=== PATIENT | male | born 1990 | race Caucasian/White ===

== ENCOUNTER → 2019-12-10 13:45 | Outpatient (CLI) | payer OTHER, SELFPAY ==
[2019-12-16 20:07] LABS: QNTFERON TB Mitogen Value > 10.00 IU/mL (.); QNTFERON TB Nil Value 0.07 IU/mL (.); QNTFERON TB1+ Ag Value 0.09 IU/mL (.); QNTFERON TB2+ Ag Value 0.18 IU/mL (.)
[2019-12-16 21:14] LABS: QNTIFERON TB Positive Criteria Negative (Negative)
== END ==
PROVIDERS: PCP Family Medicine; Referring Provider Physician Assistant Medical; Visit Provider Physician Assistant Medical
DX: L40.0 Psoriasis vulgaris (principal); Z79.899 Other long term (current) drug therapy
CPT/HCPCS: 36415; 86480

== ENCOUNTER → 2021-03-21 14:54 | Outpatient (CLI) | payer OTHER, SELFPAY ==
[2021-03-27 05:06] LABS: QNTFERON TB Mitogen Value > 10.00 IU/mL (.); QNTFERON TB Nil Value 0.88 IU/mL (.); QNTFERON TB1+ Ag Value 0.71 IU/mL (.); QNTFERON TB2+ Ag Value 0.68 IU/mL (.)
[2021-03-27 09:06] LABS: QNTIFERON TB Positive Criteria Negative (Negative)
== END ==
PROVIDERS: PCP Family Medicine; Referring Provider Physician Assistant Medical; Visit Provider Physician Assistant Medical
DX: L40.0 Psoriasis vulgaris (principal); Z79.899 Other long term (current) drug therapy
CPT/HCPCS: 36415; 86480

== ENCOUNTER 2021-04-16 22:28 | Emergency (ER) | payer OTHER, SELFPAY ==
[2021-04-16 22:29] VITALS: BP 161/109; PULSE 114; RESP 16; TEMP 36.6; O2SAT 99; BMI 26.2
--- NOTE | 2021-04-16 22:56 | EDS_ITS ---
HPI HPI - GI History of Present Illness Chief Complaint: Constipation Informant: patient Narrative Narrative: Patient is a 31-year-old male presenting with constipation. Patient states he has not had a bowel movement in the past 7 days. He states he is having abdominal discomfort, cramping pain and nausea. He has been passing gas. He notes that 5 days ago after eating dinner he had chills, body aches and nausea as well as stomach cramping. He woke up covered in sweat and since then has not had a bowel movement. He is not sure his last vomit was before that. He notes he normally has a bowel movement every time he eats. Patient has tried multiple visa-ovh-gfjnqup medications including daily MiraLAX for the past 4 days, Colace for the past 2 days and a Fleet enema with no results. He had a teledoc appointment [facility] who recommend he come to the emergency room. He does have a history of appendectomy and cholecystectomy. Denies any urinary symptoms. Notes he has been drinking less and therefore urinating less. No re ported vomiting. Patient states that he is on Truvada for HIV prevention. [facility] Medical History (Updated 04/17/21 @ 01:[address] Cierra Grewal DO) ADD (attention deficit disorder) Anxiety Home Medications alprazolam 0.5 mg PO TID 04/16/21 [History Last Taken Unknown] dextroamphetamine-amphetamine 30 mg PO DAILY 04/16/21 [History Last Taken Unknown] emtricitabine-tenofovir (TDF) 1 tab PO DAILY 04/16/21 [History Last Taken Unknown] tizanidine 4 mg PO Q4H PRN PRN 04/16/21 [History Last Taken Unknown] magnesium citrate 150 ml PO DAILY PRN #296 ml 04/17/21 [Rx Last Taken Unknown] ondansetron 4 mg PO Q8H PRN #14 tab 04/17/21 [Rx Last Taken Unknown] Allergy/AdvReac Type Severity Reaction Status Date / Time Penicillins AdvReac Vomiting Verified 04/16/21 22:31 Social History Smoking Status: Current every day smoker tobacco type: cigarettes ROS ROS ED Constitutional Constitutional ED: Denies chills, fever(s) or malaise Eyes Eyes: Denies blurry vision or loss of vision ENT ENT ED: Denies rhinorrhea or sore throat Cardiovascular Cardiovascular: Denies chest pain or dizziness Respiratory/Chest Respiratory/Chest: Denies cough or dyspnea Gastrointestinal Gastrointestinal: Reports abdominal pain, constipation and nausea; Denies vomiting Genitourinary Genitourinary ED: Denies dysuria or hematuria Musculoskeletal Musculoskeletal: Denies arthralgias or myalgias Integumentary Denies rash or wounds Neurologic Neurologic: Denies focal weakness, headache(s) or weakness Psychiatric Psychiatric: Denies anxiety or behavioral changes EXAM Physical Exam Const Vital Signs: 04/16/21 22:29 Temperature 97.8 F Temperature Source Temporal Pulse Rate 114 H Respiratory Rate 16 Blood Pressure 161/109 H Blood Pressure Mean 126 Pulse Ox 99 Oxygen Delivery Method Room Air Positive well nourished and well developed General Appearance ED: well developed HEENT Reports moist mucous membranes normocephalic Eyes PERRL and EOMs intact bilaterally Neck supple Resp normal respiratory effort and clear to auscultation bilaterally Cardio regular rate, regular rhythm and no murmurs GI GI Narrative: No stool on rectal exam Inspection: Negative for abdominal distention Palpation: soft and tender; Negative for guarding, rigid or mass Back/Spine no CVA tenderness Extremity full ROM General Extremety ED: Negative for edema or tenderness General Extremity: Negative for edema Neuro Sensorium / Orientation: alert, oriented to person, oriented to place and oriented to time Motor Exam: strength 5/5 throughout; Negative for general weakness Skin Lesions: no lesions Rashes: no rashes MDM MDM MDM Narrative Medical decision making narrative: Patient is evaluated for abdominal dis comfort, nausea and constipation. He appears nontoxic and in no acute distress. Abdomen is soft and mildly tender. He does have bowel sounds throughout. He does have a prior abdominal surgeries including appendectomy cholecystectomy. CT the abdomen pelvis obtained to rule out small bowel obstruction given his degree of constipation and nausea. Work-up is largely normal. He is not have any signific ant electrolyte abnormalities, signs of infection or acute process on the CT. There is no significant stool burden or signs of fecal impaction. Patient is given a prescription for magnesium citrate as well as Zofran. He will continue taking MiraLAX. He will follow-up with his PCP and will discuss follow-up with GI at that time. Patient is counseled on signs and symptoms requiring return to the emergency room. Patient verbalizes agreement and understand this plan. Patient discharged home in stable and improved condition. Lab Data Attestation: I reviewed the patient's lab results. Labs: Laboratory Results - last 24 hr 04/16/21 04/16/21 23:15 23:15 WBC 7.1 RBC 4.90 Hgb 15.8 Hct 46.5 MCV 94.9 H MCH 32.2 H MCHC 34.0 RDW Std Deviation 40.3 RDW Coeff of Geno 11.7 Plt Count 299 MPV 10.6 Immature Gran % (Auto) 1.100 H Neut % (Auto) 45.0 L Lymph % (Auto) 43.6 H [place] % (Auto) 7.2 Eos % (Auto) 2.0 Baso % (Auto) 1.1 H Absolute Neuts (auto) 3.2 Absolute Lymphs (auto) 3.09 Nucleated RBC % 0 Sodium 142 Potassium 3.6 Chloride 112 H Carbon Dioxide 25.0 Anion Gap 5 BUN 9 Creatinine 0.89 Estim Creat Clear Calc 112.44 Est GFR (MDRD) Af Amer 128 Est GFR (MDRD) Non-Af 106 BUN/Creatinine Ratio 10.1 Glucose 101 Calcium 8.9 Total Bilirubin 0.50 AST 20 ALT 53 Alkaline Phosphatase 91 Total Protein 8.0 Albumin 4.2 Globulin 3.8 Albumin/Globulin Ratio 1.1 Lipase 117 Radiography Diagnostic Testing: Clinical Impression(s) from Imaging Studies Abdomen/Pelvis CT 04/17/21 23:06 IMPRESSION: No acute abnormality of the abdomen and pelvis. Electronically Signed: Glory Figueroa MD at 1:13 EST Tel , Service support , Discharge Plan Triage Chief Complaint: Constipation ED Provider: Cierra Grewal Dx/Rx/DC Orders Clinical Impression: Constipation, Abdominal pain Instructions: ED Constipation (Adult) Prescriptions: New ondansetron 4 mg tablet,disintegrating 4 mg PO Q8H PRN (Reason: nausea and vomiting) Qty: 14 RF: 0 magnesium citrate Solution 150 ml PO DAILY PRN (Reason: constipation) Qty: 296 RF: 0 No Action tizanidine 4 mg tablet 4 mg PO Q4H PRN PRN (Reason: Muscle Spasm) RF: 0 alprazolam 0.5 mg tablet 0.5 mg PO TID RF: 0 dextroamphetamine-amphetamine 30 mg capsule,extended release 24hr 30 mg PO DAILY RF: 0 emtricitabine-tenofovir (TDF) 200-300 mg tablet 1 tab PO DAILY RF: 0 Primary Care Provider: Elsi Flaherty Referrals: Elsi Flaherty DO [Primary Care Provider] - Disposition Disposition: Home, Self Care Discharge Date/Time: 04/17/21 01:47
[2021-04-16] MEDS: 0.9% Normal Saline 1,000 ML 1000 ML IV (23:19)
[2021-04-16] MEDS: Ondansetron 4 MG/2 ML Vial IV (23:19)
[2021-04-16 23:30] LABS: Absolute Lymphocyte Count 3.09 X10^3/uL (0.83-4.51); Absolute Neutrophil Count 3.2 X10^3/uL (2.0-7.7); Basophil# 0.08 X10^3/uL; Basophil% 1.1 % (0-1); Eosinophil# 0.14 X10^3/uL; Hematocrit 46.5 % (40-54); Hemoglobin 15.8 g/dL (13.0-16.5); Lymphocyte # 3.09 X10^3/ul (0.83-4.51); Lymphocyte % 43.6 % (19-41); Mean Corpuscular Hgb 32.2 pg (27.0-32.0); Mean Corpuscular Volume 94.9 fL (80-94); Mean Platelet Vol. 10.6 fl (6.2-12.0); Monocyte# 0.51 X10^3/uL; Monocyte% 7.2 % (0-10); NRBC Flagged by Analyzer 0 % (0-5); Neutrophil # 3.19 X10^3/uL (2.7-7.7); Platelet Count 299 K/mm3 (150-450); RBC Distribution Width CV 11.7 % (11.6-14.6); RBC Distribution Width SD 40.3 fl (35.1-43.9); White Blood Count 7.1 K/mm3 (4.4-11.0)
[2021-04-16 23:46] LABS: ALB/GLOB Ratio 1.1 RATIO (0.9-2.4); AST(SGOT) 20 U/L (15-37); Alanine Aminotransfer ALT/SGPT 53 U/L (16-61); Albumin, Serum 4.2 g/dL (3.2-5.0); Alkaline Phosphatase 91 U/L (45-117); Anion Gap 5 (5-15); BUN 9 mg/dL (7-18); BUN/Creat Ratio 10.1 RATIO (10-20); Calcium,Total 8.9 mg/dL (8.5-10.1); Chloride 112 mmol/L (98-107); Creatinine, Serum 0.89 mg/dL (0.70-1.30); EST Glomerular Filtration Rate 106 mL/min (>60); Est Glom Filt Rate - Afr Amer 128 mL/min (>60); Estimated Creatinine Clearance 112.44 ml/min; Globulin 3.8 g/dL (2.2-4.2); Glucose 101 mg/dL (74-106); Lipase 117 U/L (73-393); Potassium 3.6 mmol/L (3.5-5.1); Sodium Level 142 mmol/L (136-145)
--- NOTE | 2021-04-17 23:06 | CT_ITS ---
STUDY: CT ABDOMEN AND PELVIS WITH CONTRAST REASON FOR EXAM: Male, 31 years old. abdominal pain, constipation RADIATION DOSAGE (If Supplied By Facility): CTDIvol = ( 14.51 ) mGy, DLP = ( 888.15 ) mGycm TECHNIQUE: Transaxial images were obtained from the dome of the diaphragm to the symphysis pubis without oral contrast. IV 100mL Isovue-300 was administered. Sagittal and coronal images were reconstructed. Individualized dose optimization techniques were used for this CT. COMPARISON: None. FINDINGS: The visualized lung bases are unremarkable. The visualized portions of the heart are within normal limits. Normal liver. There are surgical clips in the gallbladder fossa consistent with a prior cholecystectomy. Normal spleen. Normal pancreas. Normal bilateral adrenal glands. Normal right kidney. There is a cyst in the left kidney measures 1 cm. Normal visualized stomach. Normal small intestine. Normal colon. There are surgical clips in the region of the appendix consistent with a prior appendectomy. Normal abdominal aorta. Normal inferior vena cava. Normal retroperitoneum. Normal urinary bladder. Normal abdominal wall. Normal osseous structures. CT/Abdomen/Pelvis W IV Cont ONLY IMPRESSION: No acute abnormality of the abdomen and pelvis. Electronically Signed: Glory Figueroa MD at 1:13 EST Tel , Service support ,
== END 2021-04-17 01:47 | disposition home or self-care (01) ==
PROVIDERS: Emergency Provider Emergency Medicine; PCP Family Medicine
DX: K59.00 Constipation, unspecified (principal); R10.9 Unspecified abdominal pain; R11.0 Nausea; Z90.49 Acquired absence of other specified parts of digestive tract; F41.9 Anxiety disorder, unspecified; F98.8 Other specified behavioral and emotional disorders with onset usually occurring in childhood and adolescence; F17.210 Nicotine dependence, cigarettes, uncomplicated; Z79.899 Other long term (current) drug therapy
CPT/HCPCS: 74177; 80053; 83690; 85025; 96361; 96374; 99283; J7030; Q9967; A4216; J2405

== ENCOUNTER → 2021-11-20 | Outpatient (CLI) | payer OTHER, SELFPAY ==
[2021-11-20 12:43] LABS: Absolute Lymphocyte Count 2.08 X10^3/uL (0.83-4.51); Absolute Neutrophil Count 3.4 X10^3/uL (2.0-7.7); Basophil# 0.05 X10^3/uL; Basophil% 0.8 % (0-1); Eosinophil# 0.09 X10^3/uL; Eosinophils% 1.5 % (0-5); Hemoglobin 15.9 g/dL (13.0-16.5); Lymphocyte # 2.08 X10^3/ul (0.83-4.51); Lymphocyte % 33.9 % (19-41); Mean Corp Hgb Conc 33.1 g/dL (32-36); Mean Corpuscular Hgb 31.4 pg (27.0-32.0); Mean Corpuscular Volume 94.9 fL (80-94); Mean Platelet Vol. 11.3 fl (6.2-12.0); Monocyte# 0.45 X10^3/uL; Monocyte% 7.3 % (0-10); NRBC Flagged by Analyzer 0 % (0-5); Neutrophil # 3.43 X10^3/uL (2.7-7.7); Platelet Count 277 K/mm3 (150-450); RBC Distribution Width CV 11.9 % (11.6-14.6); RBC Distribution Width SD 41.5 fl (35.1-43.9); Red Blood Count 5.06 M/mm3 (4.6-6.2); White Blood Count 6.1 K/mm3 (4.4-11.0)
[2021-11-20 13:11] LABS: ALB/GLOB Ratio 1.3 RATIO (0.9-2.4); AST(SGOT) 17 U/L (15-37); Alanine Aminotransfer ALT/SGPT 43 U/L (16-61); Albumin, Serum 4.3 g/dL (3.2-5.0); Alkaline Phosphatase 69 U/L (45-117); Anion Gap 5 (5-15); BUN 15 mg/dL (7-18); BUN/Creat Ratio 14.3 RATIO (10-20); Chloride 110 mmol/L (98-107); Creatinine, Serum 1.05 mg/dL (0.70-1.30); EST Glomerular Filtration Rate 87 mL/min (>60); Est Glom Filt Rate - Afr Amer 105 mL/min (>60); Globulin 3.2 g/dL (2.2-4.2); Glucose 96 mg/dL (74-106); Potassium 3.9 mmol/L (3.5-5.1); Protein, Total 7.5 g/dL (6.4-8.2); Sodium Level 142 mmol/L (136-145)
[2021-11-20 13:39] LABS: HIV - WCH Non-Reactive (Nonreactive)
== END | disposition home or self-care (01) ==
LOC: LAB 11:11
PROVIDERS: PCP Family Medicine; Referring Provider Family Medicine; Visit Provider Family Medicine
DX: F41.1 Generalized anxiety disorder (principal); F90.8 Attention-deficit hyperactivity disorder, other type; Z79.899 Other long term (current) drug therapy
CPT/HCPCS: 36415; 80053; 85025; 86703